=== PATIENT | male | born 1935 | race Caucasian/White ===

== ENCOUNTER 2019-02-23 21:42 | Observation (INO) | payer OTHER ==
--- NOTE | 2019-02-23 21:58 | EDPHY ---
H & P Stated Complaint: afib Time Seen by Provider: 02/23/19 21:58 HPI/ROS: HPI CHIEF COMPLAINT: "increased HR" HISTORY OF PRESENT ILLNESS: This patient is a 83-year-old male, very pleasant, presents emergency room by EMS after called 911 this evening for increased heart rate. The patient states that he was sitting down resting his heart rate usually runs in the 70s to 90s. He took his pulse and it was 101. This concerned him. He called 911 for to "get advice". Paramedics arrived to his house and recommend he be transported to the hospital for further evaluation. Denies any chest pain, denies shortness of breath, denies fever, denies vomiting , denies dizziness, denies feeling lightheaded. Denies focal numbness or tingling or focal weakness. He states he otherwise feels fine. However he was concerned about his heart rate being that high. He had no other symptoms. Past Medical History: Significant medical history for CVA, diabetes, hypertension Past Surgical History: Colorectal cancer. Social History: Denies drugs alcohol tobacco. Lives independently. Family History: noncontributory ROS REVIEW OF SYSTEMS: 10 Systems were reviewed and negative with the exception of the elements mentioned in the history of present illness. Exam Constitutional triage nursing summary reviewed, vital signs reviewed, awake/ alert. Eyes normal conjunctivae and sclera, EOMI, PERRLA. HENT normal inspection, atraumatic, moist mucus membranes, no epistaxis, neck supple/ no meningismus, no raccoon eyes. Respiratory clear to auscultation bilaterally, normal breath sounds, no respiratory distress, no wheezing. Cardiovascular rate normal, regular rhythm, no murmur, no edema, distal pulses normal. Gastrointestinal soft, non-tender, no rebound, no guarding, normal bowel sounds, no distension, no pulsatile mass. Genitourinary no CVA tenderness. Musculoskeletal no midline vertebral tenderness, full range of motion, no calf swelling, no tenderness of extremities, no meningismus, good pulses, neurovascularly intact. Skin pink, warm, & dry, no rash, skin atraumatic. Neurologic awake, alert and oriented x 3, AAOx3, moves all 4 extremities equally, motor intact, sensory intact, CN II-XII intact, normal cerebellar, normal vision, normal speech. Psychiatric normal mood/affect. Heme/Lymph/Immune no lymphadenopathy. Differential Diagnosis: Includes but is not limited to in a particular order dehydration, electrolyte disturbance, cardiac arrhythmia, AFib, proximal AFib Medical Decision Making: Plan for this patient IV establishment, night monitor, IV fluid bolus, basic labs, troponin, EKG, chest x-ray and re- evaluate. The patient here in emergency room has no complaints. His heart rate is currently 76 upon my evaluation. Re-evaluation: EKG interpretation by me on record in [employer] system. Impression time of EKG 2146, sinus rhythm rate of 76, there is no signs of acute ischemia. No ST elevation no ST depression. Troponin 0.08. Labs reviewed unremarkable except for high blood sugar 279. EKG okay. Chest x-ray negative for acute cardiopulmonary disease. 2327 patient resting comfortably this time. He has no chest pain. No shortness of breath heart rate 77. EKG interpretation by me on record in [employer] system. Impression time of EKG 1:11 a.m., sinus rhythm rate of 76, no signs of acute ST elevation. CT scan head without contrast no acute intracranial abnormality age-appropriate brain parenchymal atrophy, chronic small-vessel ischemic disease Faxed me by direct Radiology at time 1:[address] Hurd Consulted for Confusion. Plan for admission, patient noted throughout his emergency room visit to be confused. Intermittently confused. He thought it was noon today when he arrived. However he arrived to 10:00 p.m. At night. He thought he been in the emergency room for close to 14 hr. The patient is intermittently confused. Possible sundowning versus delirium versus underlying dementia. Not appropriate at this time to discharge to his private residence by himself given how confused he is. Hospitalist service consult for admission. Source: Patient, EMS Exam Limitations: Clinical condition - Personal History Current Tetanus Diphtheria and Acellular Pertussis (TDAP): Unsure - Medical/Surgical History Hx Asthma: No Hx Chronic Respiratory Disease: No Hx Diabetes: Yes Hx Cardiac Disease: No Hx Renal Disease: No Hx Cirrhosis: No Hx Alcoholism: No Hx HIV/AIDS: No Hx Splenectomy or Spleen Trauma: No Other PMH: Hypertension, diabetes, PTSD, colon cancer. - Social History Smoking Status: Never smoked Constitutional: Initial Vital Signs Temperature (C) 36.8 C 02/23/19 21:48 Heart Rate 79 02/23/19 21:48 Respiratory Rate 16 02/23/19 21:48 Blood Pressure 143/100 H 02/23/19 21:48 O2 Sat (%) 95 02/23/19 21:48 O2 Delivery Mode Room Air Allergies/Adverse Reactions: doxazosin Allergy (Verified 02/24/19 08:23) uk sildenafil citrate [From Viagra] Allergy (Verified 02/24/19 08:23) stomach upset Home Medications: Medication Instructions Recorded Cholecalciferol Vit D3 [Vitamin D3 1,000 units PO DAILY 10/01/16 (*)] Cyanocobalamin [Vitamin B12 (*)] 1,000 mcg PO DAILY 10/01/16 Docusate Sodium [Colace 100 MG (*)] 100 mg PO BID 10/01/16 Insulin Detemir [Levemir] 45 unit SQ BID 10/01/16 Ketoconazole 2% [Nizoral Shampoo 1 rashida TP DAILY 10/01/16 (*)] Lisinopril [Zestril 5 mg (*)] 5 mg PO DAILY 10/01/16 Acetaminophen [Tylenol 325mg (*)] 650 mg PO Q4HRS PRN #0 tab 10/03/16 Atorvastatin Calcium [Lipitor 40 40 mg PO DAILY #30 tab 10/03/16 mg (*)] Medical Decision Making - Data Points Laboratory Results: Laboratory Results 02/23/19 21:50 02/23/19 21:50 Medications Given: Discontinued Medications Atorvastatin Calcium (Lipitor) 40 mg PO DAILY [facility] Stop: 08/23/19 09:44 Last Admin: 02/24/19 11:25 Dose: Not Given Enoxaparin Sodium (Lovenox) 40 mg SC DAILY [facility] Stop: 08/23/19 08:59 Last Admin: 02/24/19 08:32 Dose: Not Given Sodium Chloride (Ns) 1,000 mls @ 0 mls/hr IV EDNOW ONE; Wide Open PRN Reason: Protocol Stop: 02/23/19 22:05 Last Admin: 02/23/19 22:09 Dose: 1,000 mls Insulin Glargine (Lantus Syringe) 17 units SC BID [facility] Stop: 08/23/19 08:59 Last Admin: 02/24/19 08:32 Dose: 17 units Insulin Glargine (Lantus Syringe) 28 units SC ONCE ONE Stop: 02/24/19 10:01 Last Admin: 02/24/19 11:26 Dose: 28 units Insulin Human Lispro (Humalog Lispro) 0 unit SC TIDMEAL [facility] PRN Reason: Protocol Stop: 08/23/19 07:59 Last Admin: 02/24/19 13:24 Dose: 2 units Ketoconazole (Nizoral Shampoo) 1 rashida TP DAILY [facility] Stop: 03/26/19 09:44 Last Admin: 02/24/19 14:36 Dose: 1 rashida Lisinopril (Zestril) 5 mg PO DAILY [facility] Stop: 08/23/19 09:44 Last Admin: 02/24/19 11:26 Dose: 5 mg Point of Care Test Results: Chemistry 02/24/19 02/24/19 02/23/19 01:18 00:27 22:15 POC Glucose 260 mg/dL H mg/dL (70-100) POC Troponin I 0.01 ng/mL ng/mL 0.08 ng/mL ng/mL (0.00-0.08) (0.00-0.08) Departure - Departure Disposition: [facility] Inpatient Acute Clinical Impression: Tachycardia, Acute delirium Condition: Good
[2019-02-23] MEDS ORDERED: NS 1,000 ML IV ONE (22:04)
[2019-02-23 22:15] LABS: PLATELET COUNT 238 10^3/uL (150-400)
[2019-02-23 22:19] LABS: INR 1.11 (0.83-1.16); PROTIME(PATIENT) 13.9 SEC (12.0-15.0)
[2019-02-24] MEDS ORDERED: ONDANSETRON DISINTEGRATING 4 MG TAB PO PRN (02:44)
[2019-02-24] MEDS ORDERED: ACETAMINOPHEN 325 MG TAB PO PRN (02:44)
[2019-02-24] MEDS ORDERED: ONDANSETRON 4 MG/2 ML VIAL IVP PRN (02:44)
[2019-02-24] MEDS ORDERED: D50W 25 GM/50 ML SYR IVP PRN (02:47)
--- NOTE | 2019-02-24 07:23 | CPEKG ---
Test Reason : OPEN Blood Pressure : / mmHG Vent. Rate : 076 BPM Atrial Rate : 076 BPM P-R Int : 202 ms QRS Dur : 097 ms QT Int : 376 ms P-R-T Axes : 059 -46 051 degrees QTc Int : 423 ms Sinus rhythm Probable inferior infarct, old Confirmed by Mode Vaca ([id number]) on 02/24/2019 7:22:40 AM Referred By: Mode Vaca Confirmed By:Mode Vaca
--- NOTE | 2019-02-24 07:23 | CPEKG ---
Test Reason : OPEN Blood Pressure : / mmHG Vent. Rate : 076 BPM Atrial Rate : 077 BPM P-R Int : 197 ms QRS Dur : 093 ms QT Int : 360 ms P-R-T Axes : 033 -50 040 degrees QTc Int : 405 ms Sinus rhythm Inferior infarct, old Confirmed by Mode Vaca ([id number]) on 02/24/2019 7:22:41 AM Referred By: Mode Vaca Confirmed By:Mode Vaca
--- NOTE | 2019-02-24 08:30 | PDGENHP ---
History and Physical - Chief Complaint tachycardia - History of Present Illness Source - Patient able to provide majority of the history. appears reliable. EMR reviewed and case discussed with ED provider. HPI - This is a pleasant 83 yo M with pmhx significant for DM II, HLD, history CVA, vertigo, PTSD, remote history of colon cancer who presents to the emergency department today with complaints of tachycardia of 101 at home. Patient denies any chest pressure. He does not a brief episode of chest wall pain worse with any movement that rapidly resolved. He denies any palpitations. No associated SOB, SÁNCHEZ. He reports chronic LE edema that my be just slightly more than normal feels could be related to dietary indiscretions as well as increasingly sedentary lifestyle 2/2 worsening neuropathy. Patient also concerned regarding his sugars. reports he ran out of insulin pens and did not receive in the mail. He notes [facility]. Patient denies any fevers/chills/nausea. + constipation resolved with otc miralax and stool softener. Patient also noted some concerns for " irregular heartbeat" he noticed on his ekg watch. He states it was irregular because of the "spikes" but denies noting any irregularities in frequency of beats. Patient was intended to be discharged home yesterday evening however as evening progressed some of patient memory/responses appeared to be impaired. Patient reports a history of CVA for which he was hospitalized here. Patient insinuates he may have some memory difficulties related to this but does not directly say so. Patient did not sleep much overnight but at home reports he generally gets a total 8 hours divided each evening. Patient also notes some PTSD whereby he will wake up in a panic each evening approximately 10-11pm after falling asleep on the sofa and then return to bed. History Information - Allergies/Home Medication List Allergies/Adverse Reactions: doxazosin Allergy (Verified 02/24/19 08:23) uk sildenafil citrate [From Viagra] Allergy (Verified 02/24/19 08:23) stomach upset Home Medications: Cholecalciferol Vit D3 [Vitamin D3 (*)] 1,000 units PO DAILY 10/01/16 [Last Taken Unknown] Cyanocobalamin [Vitamin B12 (*)] 1,000 mcg PO DAILY 10/01/16 [Last Taken Unknown ] Docusate Sodium [Colace 100 MG (*)] 100 mg PO BID 10/01/16 [Last Taken 09/30/16] Insulin Detemir [Levemir] 45 unit SQ BID 10/01/16 [Last Taken 09/30/16] Ketoconazole 2% [Nizoral Shampoo (*)] 1 rashida TP DAILY 10/01/16 [Last Taken Unknown] Lisinopril [Zestril 5 mg (*)] 5 mg PO DAILY 10/01/16 [Last Taken 09/30/16] I have personally reviewed and updated: family history, medical history, social history, surgical history - Past Medical History cancer (colon cancer--tx'ed with surgery, no chemo or xrt), diabetes type 2, hypertension, hyperlipidemia Additional medical history: 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 CVA. PTSD - Surgical History Reports: colectomy (partial for colon cancer) - Family History Additional family history: mother () - DM II, CAD. father () - cancer. brother () - hx of tobacco abuse and CAD. - Social History Smoking Status: Never smoked Alcohol Use: None Drug Use: None Additional social history: retired from [employer]. patient sons reside in [place]. He reports he has good friends who provide local support. COR - FULL but patient does not want prolonged life support Review of Systems Review of Systems: ROS: 10pt was reviewed & negative except for what was stated in HPI & below Constitutional: Reports: no symptoms EENMT: Reports: no symptoms Cardiac: Reports: edema (chronic). Denies: chest pain, lightheadedness, palpitations Respiratory: Reports: no symptoms Gastrointestinal: Reports: constipation Genitourinary: Reports: no symptoms Muscolosketal: Reports: joint pain, muscle pain (lower extremities.) Skin: Reports: no symptoms Neurological: Reports: numbness (neuropathy bilateral lower extremities. ), other (PTSD) Hematologic/Lymphatic: Reports: no symptoms Physical Exam Physical Exam: Selected Entries 02/23/19 02/24/19 21:48 07:03 Heart Rate 79 76 Respiratory 16 13 Rate O2 Sat (%) 95 94 Temperature (C) 36.8 C 36.8 C Blood Pressure 143/100 H 145/80 H Mean Arterial 114 H 101 H Pressure (MAP) Activity During At Rest Vital Signs O2 Delivery Room Air Room Air Mode Blood Pressure Right Source Upper Arm Temperature Oral Oral Source Constitutional: no apparent distress, obese, other (NAD. pleasant elderly gentleman is resting quietly in bed awake. ) Eyes: PERRL (decreased reactivity to light bilaterally and symmetric. ), pale conjunctiva, No scleral injection Ears, Nose, Mouth, Throat: moist mucous membranes, poor dentition (missing dentition) Cardiovascular: regular rate and rhythym, no murmur, rub, or gallop, pulses symmetric bilaterally, edema (1+ pitting bilateral lower extremities. ) Peripheral Pulses: 1+: dorsalis-pedis (R), dorsalis-pedis (L) Respiratory: no respiratory distress, no rales or rhonchi, clear to auscultation Gastrointestinal: normoactive bowel sounds, soft, non-tender abdomen, no palpable masses, distension (soft but full. ) Genitourinary: no bladder tenderness Skin: warm, normal color, no rashes or abrasions, No rash Musculoskeletal: generalized weakness (generalized deconditioning. ) Neurologic: AAOx3 (this AM patient is AAOx3. ), sensation intact bilaterally ( diminished bilateral lower extremities. ), CN II-XII Intact, No weakness, No facial droop Psychiatric: interacting appropriately (patient utiltizes a lot of aeronautic ) , not anxious, not encephalopathic, thought process linear, other (patient occasionally inserts aeronautical terms into his descriptions. otherwise appears to AAOx3 at this time. not agitated. very pleasant and cooperative. ), No encephalopathic, No agitated Lab Data & Imaging Review 02/23/19 21:50 02/23/19 21:50 WBC 6.94 10^3/uL (3.80-9.50) 02/23/19 21:50 RBC 4.63 10^6/uL (4.40-6.38) 02/23/19 21:50 Hgb 14.1 g/dL (13.7-17.5) 02/23/19 21:50 Hct 41.0 % (40.0-51.0) 02/23/19 21:50 MCV 88.6 fL (81.5-99.8) 02/23/19 21:50 MCH 30.5 pg (27.9-34.1) 02/23/19 21:50 MCHC 34.4 g/dL (32.4-36.7) 02/23/19 21:50 RDW 14.2 % (11.5-15.2) 02/23/19 21:50 Plt Count 238 10^3/uL (150-400) 02/23/19 21:50 MPV 10.2 fL (8.7-11.7) 02/23/19 21:50 Neut % (Auto) 56.5 % (39.3-74.2) 02/23/19 21:50 Lymph % (Auto) 30.8 % (15.0-45.0) 02/23/19 21:50 [place] % (Auto) 9.5 % (4.5-13.0) 02/23/19 21:50 Eos % (Auto) 1.9 % (0.6-7.6) 02/23/19 21:50 Baso % (Auto) 1.0 % (0.3-1.7) 02/23/19 21:50 Nucleat RBC Rel Count 0.3 % (0.0-0.2) H 02/23/19 21:50 Absolute Neuts (auto) 3.92 10^3/uL (1.70-6.50) 02/23/19 21:50 Absolute Lymphs (auto) 2.14 10^3/uL (1.00-3.00) 02/23/19 21:50 Absolute Monos (auto) 0.66 10^3/uL (0.30-0.80) 02/23/19 21:50 Absolute Eos (auto) 0.13 10^3/uL (0.03-0.40) 02/23/19 21:50 Absolute Basos (auto) 0.07 10^3/uL (0.02-0.10) 02/23/19 21:50 Absolute Nucleated RBC 0.02 10^3/uL (0-0.01) H 02/23/19 21:50 Immature Gran % 0.3 % (0.0-1.1) 02/23/19 21:50 Immature Gran # 0.02 10^3/uL (0.00-0.10) 02/23/19 21:50 PT 13.9 SEC (12.0-15.0) 02/23/19 21:50 INR 1.11 (0.83-1.16) 02/23/19 21:50 APTT 24.1 SEC (23.0-38.0) 02/23/19 21:50 Sodium 135 mEq/L (135-145) 02/23/19 21:50 Potassium 4.1 mEq/L (3.5-5.2) 02/23/19 21:50 Chloride 104 mEq/L (97-110) 02/23/19 21:50 Carbon Dioxide 22 mEq/l (22-31) 02/23/19 21:50 Anion Gap 9 mEq/L (6-14) 02/23/19 21:50 BUN 18 mg/dL (7-23) 02/23/19 21:50 Creatinine 1.0 mg/dL (0.7-1.3) 02/23/19 21:50 Estimated GFR > 60 02/23/19 21:50 Glucose 279 mg/dL (70-100) H 02/23/19 21:50 POC Glucose 331 mg/dL (70-100) H 02/24/19 07:42 Calcium 9.0 mg/dL (8.5-10.4) 02/23/19 21:50 Magnesium 1.7 mg/dL (1.6-2.3) 02/23/19 21:50 POC Troponin I 0.01 ng/mL (0.00-0.08) 02/24/19 01:18 NT-Pro-B Natriuret Pep 56 pg/mL (0-450) 02/23/19 21:50 Urine Color YELLOW 02/24/19 03:45 Urine Appearance CLEAR 02/24/19 03:45 Urine pH 7.0 (5.0-7.5) 02/24/19 03:45 Ur Specific [place] 1.022 (1.002-1.030) 02/24/19 03:45 Urine Protein NEGATIVE (NEGATIVE) 02/24/19 03:45 Urine Ketones TRACE (NEGATIVE) H 02/24/19 03:45 Urine Blood NEGATIVE (NEGATIVE) 02/24/19 03:45 Urine Nitrate NEGATIVE (NEGATIVE) 02/24/19 03:45 Urine Bilirubin NEGATIVE (NEGATIVE) 02/24/19 03:45 Urine Urobilinogen NEGATIVE EU (0.2-1.0) 02/24/19 03:45 Ur Leukocyte Esterase NEGATIVE (NEGATIVE) 02/24/19 03:45 Urine RBC NONE SEEN /hpf (0-3) 02/24/19 03:45 Urine WBC 1-3 /hpf (0-3) 02/24/19 03:45 Ur Epithelial Cells NONE SEEN /lpf (NONE-1+) 02/24/19 03:45 Urine Mucus TRACE /lpf (NONE-1+) 02/24/19 03:45 Urine Glucose 3+ (NEGATIVE) H 02/24/19 03:45 Imaging Review: echo from 2016 - normal EF 67%. diastolic dysfunction. Portable Chest February 23, 2019 at 2212 hours Clinical Indications: Chest pain and irregular heartbeat in an 83-year-old male ; comparison prior study November 12, 2015. Findings: No focal pulmonary consolidation is identified. Minimal basilar atelectasis is seen. Mild peribronchial thickening is identified. Aortic calcification and tortuosity is identified.. Heart size and pulmonary vessels appear normal. No evidence of pleural effusion. Impression: Suspect airways disease. Dictated By: Paul Hillman MD CT Head (Without Contrast) 0032 hours Indication: Altered mental status. Comparison: MRI brain dated October 01, [address] angiogram head dated October 01, 2016. Technique: Standard noncontrast head CT protocol utilizing 5 mm thick collimated slices and field of view of 23 cm. Dose reduction techniques were utilized. Findings: No intracranial hemorrhage, mass lesion, swelling, or subdural hematoma. Mild atrophy and moderate low attenuation periventricular and subcortical white matter disease throughout the frontal parietal lobes are unchanged since 2016. The ventricles are normal caliber and midline. The santoro and white matter has normal attenuation. No evidence of ischemia. The bones are normal. The paranasal sinuses are clear. Impression: 1. No acute intracranial hemorrhage, mass, or evidence of ischemia. 2. Atrophy and white matter disease unchanged since 3 years prior. A preliminary report was provided to Mode Vaca MD on 02/24/2019 at 1: 11am. The final interpretation is concordant. DR1 Dictated By: Aniket Garrison MD EKG additional interpertation: NSR 70s. small wave waves inferior leads. no acute ST changes. borderline NC intervals. compared to previously available ekgs appears similar. QTc 405. Assessment & Plan Assessment: This is a pleasant 83 yo M with pmhx significant for DM II, HLD, history CVA, vertigo, PTSD, remote history of colon cancer who presents to the emergency department today with complaints of tachycardia of 101 at home. Patient denies any chest pressure. #Confusion - in the emergency department and overnight on PCU patient did appear to be increasingly disoriented and responding to questions slightly inappropriately that would suggest patient was becoming disoriented to day of the week and his thought process of how he would go about completing his ADLs. Patient is a retired from the [employer]. During my conversation with him on the floor he does include multiple euphemisms with aeronautical terms and humor. Despite this patient does occasionally respond inappropriately but does not seem to be concerned with response. During conversation patient did mention he had concerns that there was some injury following 1 of his strokes. He is amenable to have speech therapy assist with providing a cognitive eval. Patient does note and recall that [facility] as he has been out for at least today and yesterday and so patient is quite anxious regarding his elevated blood sugar over the evening. #Tachycardia (Acute) - patient heart rate normalized in the emergency department. There was no evidence of any see a arrhythmias. Patient was noting he thought he was seeing irregular beats on his is EKG watch but clarified with the patient that he was actually looking at the amplitude changes of each beat. He denies any chest pain, palpitations, shortness of breath. Chronically he has lower extremity edema and admits he has been relatively sedentary and slightly noncompliant with his diet. Additionally in the evening patient reports that he on a frequent basis will have exacerbation of his PTSD for short. On and then go back to sleep and not sure if this was contributing. Additionally patient reports that he has chronic lower extremity edema that is just mildly increased. Is no additional symptoms to suggest an exacerbation CHF. #Dm 2 uncontrolled insulin-dependent - resume patient's long-acting insulin as well as bolus dosing. ADA diet. #Constipation - bowel regimen. #HLD - continue statin at discharge. #History of intermittent vertigo - patient currently asymptomatic. FEN - ADA diet. PPX - SCDs if tolerated. 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 Patient does live independently and drives. Patient's sons live in [place]. Additional conference with them as well may be helpful for insight regarding any progressive changes in patient's cognitive function or behaviors.
[2019-02-24] MEDS: INSULIN LISPRO 100 UNIT/ML SC SCH ×2 (08:31→13:24)
[2019-02-24] MEDS ORDERED: INSULIN GLARGINE 100 UNITS/ML UNIT SC SCH ×2 (09:00→21:00)
[2019-02-24] MEDS ORDERED: ENOXAPARIN 40 MG/0.4 ML SYR SC SCH (09:00)
--- NOTE | 2019-02-24 09:18 | ASMTCMCOM ---
CM Note CM Note Notes: Chart reviewed for discharge planning purposes. 83 year old male admitted via ED with c/o increased heart rate. Lives alone, has a son in [place] who is POA. Therapy evaluations pending. Plan: TBD Date Signed: 02/24/2019 09:17 AM Electronically Signed By:Marie Griffin RN
[2019-02-24] MEDS ORDERED: LISINOPRIL 5 MG TAB PO SCH (09:45)
[2019-02-24] MEDS ORDERED: ATORVASTATIN CALCIUM 40 MG TAB PO SCH (09:45)
[2019-02-24] MEDS ORDERED: KETOCONAZOLE 2% 120 ML SHAMPOO TP SCH (09:45)
[2019-02-24] MEDS ORDERED: INSULIN GLARGINE 100 UNITS/ML UNIT SC ONE (10:00)
--- NOTE | 2019-02-24 10:35 | ASMTCMCOM ---
CM Note CM Note Notes: Per OT report, patient [facility] good [facility] with help with household cleaning, RN and meals on wheels. He is alert and oriented. No other needs defined at present time. Plan: Dc to home with previous services. Date Signed: 02/24/2019 10:34 AM Electronically Signed By:Marie Griffin RN
[2019-02-24 10:58] VITALS: BP 118/70
--- NOTE | 2019-02-24 15:36 | HOSPPROG ---
Hospitalist Progress Note Assessment/Plan: negative eval see dc summary Subjective: no AF on tele Objective: Vital Signs Temp Pulse Resp BP Pulse Ox 36.4 C 83 11 L 118/70 93 02/24/19 10:57 02/24/19 10:57 02/24/19 10:57 02/24/19 10:57 02/24/19 10:57 Laboratory Results 02/24/19 07:51 02/23/19 02/24/19 02/25/19 05:59 05:59 05:59 Intake Total 100 Output Total 300 Balance 100 -300 PT 13.9 SEC (12.0-15.0) 02/23/19 21:50 INR 1.11 (0.83-1.16) 02/23/19 21:50 - Physical Exam Constitutional: no apparent distress, appears nourished Eyes: PERRL, anicteric sclera Ears, Nose, Mouth, Throat: moist mucous membranes, hearing normal Cardiovascular: regular rate and rhythym, no murmur, rub, or gallop Respiratory: no respiratory distress, no rales or rhonchi Gastrointestinal: normoactive bowel sounds Genitourinary: no bladder fullness Skin: warm, normal color Neurologic: AAOx3 Psychiatric: interacting appropriately ICD10 Worksheet Patient Problems: Problems Problem Status Onset Acute delirium Acute Tachycardia Acute CVA (cerebral vascular accident) Acute Chronic Disease Mgmt/Transitional Care Acute Cough Acute Dizziness Acute Hypoxia Acute
--- NOTE | 2019-02-24 16:05 | ASMTLACE ---
LACE Length of stay for Answers: Less than 1 day current admission Comorbidities - select Answers: Cerebrovascular disease all that apply (CVA, TIA, aneurysms, vasc ular dementia) Diabetes (uncontrolled or controlled) Social determinants Answers: Lack of community resources and/or lack of social support (no pcp, lives alone, transportation, efrain d) Score: 6 Date Signed: 02/24/2019 04:04 PM Electronically Signed By:Marie Griffin RN
--- NOTE | 2019-02-24 16:09 | ASMTCMCOM ---
CM Note CM Note Notes: Patient medically cleared for discharge to home. [facility] and [facility] will continue. No other needs at this time. Patient to secure his own transportation home. CM available should other needs arise. Plan: Dc to home with previously in place support. Date Signed: 02/24/2019 04:08 PM Electronically Signed By:Marie Griffin RN
[2019-02-24] MEDS ORDERED: INSULIN LISPRO 100 UNIT/ML SC SCH (21:00)
[2019-02-24] MEDS ORDERED: DOCUSATE SODIUM 100 MG CAP PO SCH (21:00)
[2019-02-25] MEDS ORDERED: CYANO/VITAMIN B12 1000 MCG TAB PO SCH (09:00)
[2019-02-25] MEDS ORDERED: CHOLECALCIFEROL VIT D3 1,000 UNITS TAB PO SCH (09:00)
== END 2019-02-24 16:05 | disposition home or self-care (01) ==
LOC: EDUNIT# → F2W 02-24 02:37
PROVIDERS: ADMIT Family Medicine; ATTEND Family Medicine
DX: R41.0 Disorientation, unspecified (principal); R00.0 Tachycardia, unspecified; K59.00 Constipation, unspecified; E86.9 Volume depletion, unspecified; I10 Essential (primary) hypertension; E11.9 Type 2 diabetes mellitus without complications; F43.10 Post-traumatic stress disorder, unspecified; E78.5 Hyperlipidemia, unspecified; Z79.4 Long term (current) use of insulin; Z86.73 Personal history of transient ischemic attack (TIA), and cerebral infarction without residual deficits; Z85.038 Personal history of other malignant neoplasm of large intestine
CPT/HCPCS: 70450; 71045; 92523; 93005; 97166; G0378; J1815; 84484-ER; J1650